=== PATIENT | male | born 1980 | race American Indian/Alaskan Native ===

== ENCOUNTER 2019-01-16 02:22 | Emergency (ER) | payer OTHER ==
--- NOTE | 2019-01-16 03:08 | XRay Report ---
FINAL REPORT PROCEDURE: XR CHEST ROUTINE 2V TECHNIQUE: PA and lateral chest radiographs were obtained. CPT 23283 HISTORY: CP s/p falling on a log COMPARISON: No prior studies are available for comparison. FINDINGS: Heart: Normal. Mediastinum/Vessels: Normal. Lungs/Pleural space: Normal. Bony thorax: No acute osseous abnormality. Other: IMPRESSION: Normal examination.
[2019-01-16] MEDS ORDERED: ULTRAM PO ONE (06:15)
--- NOTE | 2019-01-16 06:40 | Emergency Department Report ---
ED General Adult HPI - General Chief complaint: Fall Stated complaint: CHEST PAIN Time Seen by Provider: 01/16/19 06:22 Source: patient Mode of arrival: Ambulatory Limitations: No Limitations - History of Present Illness Initial comments: Patient presents to emergency department with a complaint of left-sided rib pain. Patient states he tripped and fell into a tree stump on Monday morning has had pain on the left side of his ribs and chest wall. Patient denies a shortness breath, headache, abdominal pain. Patient denies losing consciousness or hitting his head. -: Sudden Location: chest Severity scale (0 -10): 5 Quality: sharp Consistency: constant Improves with: rest Worsens with: movement Associated Symptoms: denies other symptoms Treatments Prior to Arrival: none - Related Data Previous Rx's Medication Instructions Recorded Last Taken Type ALBUTEROL Inhaler (OR & NICU) 2 puff IH Q4HR PRN #1 inhalation 01/16/19 Unknown Rx [ProAir HFA Inhaler] Ibuprofen [Motrin] 800 mg PO Q8HR PRN #30 tablet 01/16/19 Unknown Rx traMADol [Ultram] 50 mg PO Q6HR PRN #24 tablet 01/16/19 Unknown Rx Allergies Allergy/AdvReac Type Severity Reaction Status Date / Time No Known Allergies Allergy Verified 01/16/19 06:25 ED Review of Systems ROS: Stated complaint: CHEST PAIN Other details as noted in HPI Comment: All other systems reviewed and negative Constitutional: denies: chills, fever Eyes: denies: eye pain, eye discharge, vision change ENT: denies: ear pain, throat pain Respiratory: denies: cough, shortness of breath, wheezing Cardiovascular: denies: chest pain, palpitations Endocrine: no symptoms reported Gastrointestinal: denies: abdominal pain, nausea, diarrhea Genitourinary: denies: urgency, dysuria Musculoskeletal: denies: back pain, joint swelling, arthralgia Skin: denies: rash, lesions Neurological: denies: headache, weakness, paresthesias Psychiatric: denies: anxiety, depression Hematological/Lymphatic: denies: easy bleeding, easy bruising ED Past Medical Hx - Medications Home Medications: Home Medications Medication Instructions Recorded Confirmed Last Taken Type ALBUTEROL Inhaler (OR & NICU) 2 puff IH Q4HR PRN #1 inhalation 01/16/19 Unknown Rx [ProAir HFA Inhaler] Ibuprofen [Motrin] 800 mg PO Q8HR PRN #30 tablet 01/16/19 Unknown Rx traMADol [Ultram] 50 mg PO Q6HR PRN #24 tablet 01/16/19 Unknown Rx ED Physical Exam - General Limitations: No Limitations General appearance: alert, in no apparent distress - Head Head exam: Present: atraumatic, normocephalic - Eye Eye exam: Present: normal appearance - ENT ENT exam: Present: mucous membranes moist - Neck Neck exam: Present: normal inspection - Respiratory Respiratory exam: Present: normal lung sounds bilaterally, other (TTP of anterior aspects of ribs 4 and 5 left side). Absent: respiratory distress, wheezes, rales - Cardiovascular Cardiovascular Exam: Present: regular rate, normal rhythm. Absent: systolic murmur, diastolic murmur, rubs, gallop - GI/Abdominal GI/Abdominal exam: Present: soft, normal bowel sounds. Absent: distended, tenderness - Rectal Rectal exam: Present: deferred - Extremities Exam Extremities exam: Present: normal inspection - Back Exam Back exam: Present: normal inspection - Neurological Exam Neurological exam: Present: alert, oriented X3 - Psychiatric Psychiatric exam: Present: normal affect, normal mood - Skin Skin exam: Present: warm, dry, intact, normal color. Absent: rash ED Course Vital Signs 01/16/19 05:57 Pulse Rate 68 Respiratory 17 Rate Blood Pressure 130/93 [Right] O2 Sat by Pulse 99 Oximetry ED Medical Decision Making - Radiology Data Radiology results: report reviewed - Medical Decision Making Discussed plan of care with patient Critical care attestation.: If time is entered above; I have spent that time in minutes in the direct care of this critically ill patient, excluding procedure time. ED Disposition Clinical Impression: Rib pain on left side Disposition: DC-01 TO HOME OR SELFCARE Is pt being admited?: No Does the pt Need Aspirin: No Condition: Stable Instructions: Rib Fracture (ED) Additional Instructions: return if worse Referrals: [facility] [Provider Group] - 3-5 Days [facility] [Provider Group] - 3-5 Days Time of Disposition: 06:37
[2019-01-16 06:47] VITALS: BP 136/89
== END 2019-01-16 06:47 | disposition home or self-care (01) ==
LOC: ED 02:22
DX: R07.81 Pleurodynia (principal)
CPT/HCPCS: 71046; 93005; 93010

== ENCOUNTER 2020-01-13 12:37 | Emergency (ER) | payer OTHER ==
--- NOTE | 2020-01-13 13:51 | Event Note ---
ED Screening Note ED Screening Note: 39 yo male with right temporal parietal headache. right eye pulsating with blurry vision This initial assessment/diagnostic orders/clinical plan/treatment(s) is/are subject to change based on patients health status, clinical progression and re- assessment by fellow clinical providers in the ED. Further treatment and workup at subsequent clinical providers discretion. Patient/guardian urged not to elope from the ED as their condition may be serious if not clinically assessed and managed. Initial orders include:
[2020-01-13 13:57] VITALS: BP 119/73
== END 2020-01-13 14:56 | disposition left against medical advice (07) ==
LOC: ED 12:37
DX: R51 Headache (principal); Z53.21 Procedure and treatment not carried out due to patient leaving prior to being seen by health care provider

== ENCOUNTER 2020-08-11 14:13 | Emergency (ER) | payer SELFPAY ==
[2020-08-11 14:35] VITALS: BP 128/91
--- NOTE | 2020-08-11 17:22 | Emergency Department Report ---
ED Male HPI - General Chief complaint: Urogenital-Male Stated complaint: PAIN WHEN URINE Time Seen by Provider: 08/11/20 16:59 Source: patient Mode of arrival: Ambulatory Limitations: No Limitations - History of Present Illness Initial comments: 39-year-old male with no significant past medical history presents to the ER today complaining of penile discharge, dysuria and rectal bleeding. Patient states that he has been having extra alcohol or penile discharge for the past 2 days with associated dysuria. He denies any testicular pain, or abdominal pain. He denies any new sexual partners. Patient also complains of rectal bleeding for the past week. He states that he notices it mainly on the tissue when he wipes after having a bowel movement. He has noticed it once on the stool. He states that on the stool was dark red, and on the tissue it was bright red. He denies any associated rectal pain. He denies any abdominal pain. He denies any diarrhea or hard stools. He denies similar symptoms in the past. He denies ETOH abuse or NSAID abuse. He denies rectal intercourse. MD Complaint: penile discharge, dysuria, other (rectal bleeding) - Related Data Previous Rx's Medication Instructions Recorded Last Taken Type Albuterol Mdi (or & Nicu Only) 2 puff IH Q4HR PRN #1 inhalation 01/16/19 Unknown Rx [ProAir HFA Inhaler] Ibuprofen [Motrin] 800 mg PO Q8HR PRN #30 tablet 01/16/19 Unknown Rx traMADoL [Ultram] 50 mg PO Q6HR PRN #24 tablet 01/16/19 Unknown Rx Sulfamethoxazole/Trimethoprim 1 each PO BID #14 tablet 08/11/20 Unknown Rx [Bactrim DS TAB] Allergies Allergy/AdvReac Type Severity Reaction Status Date / Time No Known Allergies Allergy Verified 01/16/19 06:25 ED Review of Systems ROS: Stated complaint: PAIN WHEN URINE Other details as noted in HPI ED Past Medical Hx - Past Medical History Previous Medical History?: Yes Hx Headaches / Migraines: Yes - Surgical History Past Surgical History?: Yes Additional Surgical History: Right hand - Social History Smoking Status: Never Smoker Substance Use Type: None - Medications Home Medications: Home Medications Medication Instructions Recorded Confirmed Last Taken Type Albuterol Mdi (or & Nicu Only) 2 puff IH Q4HR PRN #1 inhalation 01/16/19 Unknown Rx [ProAir HFA Inhaler] Ibuprofen [Motrin] 800 mg PO Q8HR PRN #30 tablet 01/16/19 Unknown Rx traMADoL [Ultram] 50 mg PO Q6HR PRN #24 tablet 01/16/19 Unknown Rx Sulfamethoxazole/Trimethoprim 1 each PO BID #14 tablet 08/11/20 Unknown Rx [Bactrim DS TAB] ED Physical Exam - General Limitations: No Limitations General appearance: alert, in no apparent distress - Head Head exam: Present: atraumatic, normocephalic, normal inspection - Respiratory Respiratory exam: Present: normal lung sounds bilaterally. Absent: respiratory distress - Cardiovascular Cardiovascular Exam: Present: regular rate, normal rhythm. Absent: systolic murmur, diastolic murmur, rubs, gallop - GI/Abdominal GI/Abdominal exam: Present: soft, normal bowel sounds. Absent: distended, tenderness - Rectal Rectal exam: Present: normal inspection, normal rectal tone, other (no gross blood; very small amt of stool in vault). Absent: fecal impaction, hemorrhoids, mass, tenderness - Back Exam Back exam: Present: normal inspection - Neurological Exam Neurological exam: Present: alert, oriented X3 - Psychiatric Psychiatric exam: Present: normal affect, normal mood - Skin Skin exam: Present: intact ED Course Vital Signs 08/11/20 14:34 Temperature 98.4 F Pulse Rate 103 H Respiratory 18 Rate Blood Pressure 128/91 O2 Sat by Pulse 96 Oximetry ED Medical Decision Making - Lab Data Result diagrams: 08/11/20 17:28 08/11/20 17:28 - Medical Decision Making Pt presents to ED c/o dysuria, penile d/c and rectal bleeding. He has no other symptoms. Labs reviewed -- CBC show leukocytosis of 16 but H/H stable. Hemocult negative. CMP nl. UA concerning for UTI culture pending; GC also pending but pt will be tx prophylactically for gonorrhea/chlamydia. Pt has soft non tender abd. No rectal pain/swelling or ttp. Pt is well appearing, not toxic, no acute distress and well hydrated. Cause of leukocytosis unclear, could be related to UTI but pt history, exam and current conditions does not indicate need for further work up at this time. Discussed lab results, dx and tx plan with pt. He is stable at time of d/c. Critical care attestation.: If time is entered above; I have spent that time in minutes in the direct care of this critically ill patient, excluding procedure time. ED Disposition Clinical Impression: UTI (urinary tract infection), Concern about STD in male without diagnosis Disposition: DC- TO HOME OR SELFCARE Is pt being admited?: No Does the pt Need Aspirin: No Condition: Stable Instructions: Urinary Tract Infection in Men (ED), Sexually Transmitted Diseases (ED) Additional Instructions: I recommend that you take antibiotics as prescribed and complete it. I recommend close f/u with GI specialist if bleeding continues. Return to ED if worse. Prescriptions: Sulfamethoxazole/Trimethoprim [Bactrim DS TAB] 1 each PO BID #14 tablet Referrals: PRIMARY CARE, [Primary Care Provider] - 3-5 Days [facility] [Provider Group] - 3-5 Days Time of Disposition: 18:40
[2020-08-11 18:13] LABS: Basophils # (Auto) 0.1 K/mm3 (0.0-0.1); Basophils % (Auto) 0.5 % (0.0-1.8); Eosinophils # (Auto) 0.2 K/mm3 (0.0-0.4); Eosinophils % (Auto) 1.4 % (0.0-4.3); Hemoglobin 16.2 gm/dl (11.8-15.2); Lymphocytes # (Auto) 1.8 K/mm3 (1.2-5.4); Lymphocytes % (Auto) 11.3 % (13.4-35.0); Mean Corpuscular HGB Conc 35 % (32-34); Mean Corpuscular Volume 91 fl (84-94); Monocytes # (Auto) 1.4 K/mm3 (0.0-0.8); Monocytes % (Auto) 8.5 % (0.0-7.3); Platelet Count 280 K/mm3 (140-440); Red Blood Count 5.18 M/mm3 (3.65-5.03); Red Cell Distribution Width 14.1 % (13.2-15.2)
[2020-08-11 18:32] LABS: Alanine Aminotransferase 12 units/L (7-56); Albumin 4.8 g/dL (3.9-5); BUN/Creatinine Ratio 10; Blood Urea Nitrogen 10 mg/dL (9-20); Calcium 9.4 mg/dL (8.4-10.2); Hemolysis Index 3
[2020-08-11 18:34] LABS: Bilirubin,Urine NEG (Negative); Blood,Urine SM (Negative); Color,Urine Yellow (Yellow); Mucus,Urine 2+ /HPF; Urobilinogen,Urine < 2.0 mg/dL (<2.0)
[2020-08-11 18:36] LABS: WBC,Urine > 182.0 /HPF (0.0-6.0)
[2020-08-11] MEDS ORDERED: AZITHROMYCIN 250 MG TAB PO ONE (18:37)
[2020-08-11] MEDS ORDERED: LIDOCAINE-MPF (1%) 10 MG/1 ML VIAL 5 ML INFILTRATI ONE (18:37)
== END 2020-08-11 19:20 | disposition home or self-care (01) ==
LOC: ED 14:13
DX: N39.0 Urinary tract infection, site not specified (principal); Z11.3 Encounter for screening for infections with a predominantly sexual mode of transmission; G43.909 Migraine, unspecified, not intractable, without status migrainosus; Z79.899 Other long term (current) drug therapy
CPT/HCPCS: 36415; 80053; 81001; 82271; 85025; 87591; 96372; 99283; J0696

== ENCOUNTER 2020-08-28 01:15 | Emergency (ER) | payer OTHER ==
[2020-08-28 02:10] VITALS: BP 124/84
[2020-08-28] MEDS ORDERED: ACETAMINOPHEN 500 MG TAB PO ONE (02:45)
--- NOTE | 2020-08-28 04:37 | Cat Scan Report ---
CT head/brain wo con INDICATION: Headache. TECHNIQUE: Routine CT head without contrast. All CT scans at this location are performed using CT dos e reduction for ALARA by means of automated exposure control. COMPARISON: None. FINDINGS: BRAIN / INTRACRANIAL CONTENTS: No acute hemorrhage, mass effect, midline shift, or hydrocephalus. No appreciable acute large territorial or lacunar infarct. No chronic infarct or focal atrophy. Normal b rain volume and ventricular/sulcal size for age. ORBITS: No significant abnormality of visualized orbits. SINUSES / MASTOIDS: No significant abnormality of visualized sinuses and mastoid air cells. ADDITIONAL FINDINGS: None. IMPRESSION: 1. No acute intracranial abnormality. Signer Name: Honorio Gonzales MD Signed: 08/28/2020 4:32 AM Workstation Name: [email or web address]
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
== END 2020-08-28 05:00 | disposition home or self-care (01) ==
LOC: ED 01:15
DX: S09.90XA Unspecified injury of head, initial encounter (principal); G44.319 Acute post-traumatic headache, not intractable; F17.200 Nicotine dependence, unspecified, uncomplicated; Z98.890 Other specified postprocedural states; Z79.1 Long term (current) use of non-steroidal anti-inflammatories (NSAID); Z79.899 Other long term (current) drug therapy; Y04.8XXA Assault by other bodily force, initial encounter; Y93.89 Activity, other specified; Y92.89 Other specified places as the place of occurrence of the external cause; Y99.8 Other external cause status
CPT/HCPCS: 70450

== ENCOUNTER 2021-01-26 01:06 | Emergency (ER) | payer OTHER ==
[2021-01-26] MEDS ORDERED: KETOROLAC 30 MG/1 ML INJ IV ONE (01:12)
[2021-01-26] MEDS ORDERED: ONDANSETRON 4 MG/2 ML INJ IV ONE (01:12)
--- NOTE | 2021-01-26 01:18 | Emergency Department Report ---
ED Abdominal Pain HPI - General Chief Complaint: Abdominal Pain Stated Complaint: PAINFUL URINATION/FLANK PAIN Time Seen by Provider: 01/26/21 01:09 Source: patient Mode of arrival: Ambulatory Limitations: No Limitations - History of Present Illness Initial Comments: 40 yr old male with pmhx of chronic QUACH and tobacco use presents to ED c/o urinary urgency, hesistancy and decrease urinary ouput. He states his symptoms started about 3 days ago. He reports associated left flank pain, which radiates into left groin. He states he did notice some blood in underwear yesterday but he has not urinated any blood. He reports nausea but no vomiting. He denies any fever, chills, penile d/c, testicular pain or swelling. He denies hx of prostate issues or kidney stones. MD Complaint: flank pain, other (urinary urgency, hesistancy ) -: Gradual - Related Data Previous Rx's Medication Instructions Recorded Last Taken Type Albuterol Mdi (or & Nicu Only) 2 puff IH Q4HR PRN #1 inhalation 01/16/19 Unknown Rx [ProAir HFA Inhaler] traMADoL [Ultram] 50 mg PO Q6HR PRN #24 tablet 01/16/19 Unknown Rx Butalb/Acetamin/Caff 50-325-40 1 - 2 tab PO Q6HR PRN #12 tab 08/28/20 Unknown Rx [Fioricet 50-325-40] Ibuprofen [Motrin] 600 mg PO Q8H PRN #20 tablet 08/28/20 Unknown Rx Ibuprofen [Motrin 800 MG tab] 800 mg PO Q8HR PRN #30 tablet 01/26/21 Unknown Rx Ondansetron [Zofran Odt] 4 mg PO Q8HR #12 tab.rapdis 01/26/21 Unknown Rx Sulfamethoxazole/Trimethoprim 1 each PO BID #14 tablet 01/26/21 Unknown Rx [Bactrim DS TAB] Allergies Allergy/AdvReac Type Severity Reaction Status Date / Time No Known Allergies Allergy Verified 01/16/19 06:25 ED Review of Systems ROS: Stated complaint: PAINFUL URINATION/FLANK PAIN Other details as noted in HPI Comment: All other systems reviewed and negative Constitutional: denies: chills, fever Eyes: denies: eye pain, eye discharge, vision change Respiratory: denies: cough, shortness of breath, wheezing Cardiovascular: denies: chest pain, palpitations Endocrine: no symptoms reported Gastrointestinal: abdominal pain, nausea. denies: vomiting, diarrhea, constipation, hematemesis, hematochezia, other Genitourinary: urgency, hematuria, other (hesistancy ). denies: dysuria, frequency, testicular pain, testicular mass Skin: denies: rash, lesions Neurological: denies: headache, weakness, paresthesias Psychiatric: denies: anxiety, depression Hematological/Lymphatic: denies: easy bleeding, easy bruising ED Past Medical Hx - Past Medical History Previous Medical History?: Yes Hx Headaches / Migraines: Yes - Surgical History Past Surgical History?: Yes Additional Surgical History: Right hand - Social History Smoking Status: Current Every Day Smoker Substance Use Type: None - Medications Home Medications: Home Medications Medication Instructions Recorded Confirmed Last Taken Type Albuterol Mdi (or & Nicu Only) 2 puff IH Q4HR PRN #1 inhalation 01/16/19 Unknown Rx [ProAir HFA Inhaler] traMADoL [Ultram] 50 mg PO Q6HR PRN #24 tablet 01/16/19 Unknown Rx Butalb/Acetamin/Caff 50-325-40 1 - 2 tab PO Q6HR PRN #12 tab 08/28/20 Unknown Rx [Fioricet 50-325-40] Ibuprofen [Motrin] 600 mg PO Q8H PRN #20 tablet 08/28/20 Unknown Rx Ibuprofen [Motrin 800 MG tab] 800 mg PO Q8HR PRN #30 tablet 01/26/21 Unknown Rx Ondansetron [Zofran Odt] 4 mg PO Q8HR #12 tab.rapdis 01/26/21 Unknown Rx Sulfamethoxazole/Trimethoprim 1 each PO BID #14 tablet 01/26/21 Unknown Rx [Bactrim DS TAB] ED Physical Exam - General Limitations: No Limitations General appearance: alert, in no apparent distress - Head Head exam: Present: atraumatic, normocephalic, normal inspection - Eye Eye exam: Present: normal appearance, PERRL, EOMI Pupils: Present: normal accommodation - ENT ENT exam: Present: normal exam, mucous membranes moist - Respiratory Respiratory exam: Present: normal lung sounds bilaterally. Absent: respiratory distress - Cardiovascular Cardiovascular Exam: Present: regular rate, normal rhythm, normal heart sounds - GI/Abdominal GI/Abdominal exam: Present: soft. Absent: distended, tenderness, guarding, rebound - Back Exam Back exam: Present: normal inspection, CVA tenderness (L) - Neurological Exam Neurological exam: Present: alert, oriented X3, CN II-XII intact, normal gait - Psychiatric Psychiatric exam: Present: normal affect, normal mood - Skin Skin exam: Present: intact ED Course Vital Signs 01/26/21 01/26/21 01/26/21 01:14 02:16 02:46 Temperature 98.5 F Pulse Rate 92 H Respiratory 16 16 16 Rate Blood Pressure 137/85 Blood Pressure [Right] O2 Sat by Pulse 97 Oximetry 01/26/21 03:21 Temperature 98.2 F Pulse Rate 72 Respiratory 16 Rate Blood Pressure Blood Pressure 128/72 [Right] O2 Sat by Pulse 100 Oximetry ED Medical Decision Making - Lab Data Result diagrams: 01/26/21 01:20 01/26/21 01:20 - Radiology Data Radiology results: report reviewed - Medical Decision Making 40 yr old male with pmhx of chronic QUACH and tobacco use presents to ED c/o urin sujit urgency, hesistancy and decrease urinary ouput. He states his symptoms started about 3 days ago. He reports associated left flank pain, which radiates into left groin. He states he did notice some blood in underwear yesterday but he has not urinated any blood. He reports nausea but no vomiting. He denies any fever, chills, penile d/c, testicular pain or swelling. He denies hx of prostate issues or kidney stones. 0316: Patient resting comfortably. He states that his pain is much better after meds and fluids. Labs reviewed, CBC shows leukocytosis, CMP unremarkable, UA positive for UTI, urine culture pending and his CT report shows diffuse thickening of the urinary bladder wall which may indicate cystitis but no pyelonephritis or stone seen on the CT. His vital signs have remained stable throughout the stay including the fact that he has been afebrile. He is not toxic appearing nor is he ill-appearing. He is not in any acute distress. He is neurologically intact. Very low concern for sepsis at this time. No indication for any further work-up, admission or emergent consult at this time. Discussed lab results, CT results, diagnosis and treatment plan with patient. Patient expressed understanding of instructions and agree with plan. Patient was stable at time of discharge. Critical care attestation.: If time is entered above; I have spent that time in minutes in the direct care of this critically ill patient, excluding procedure time. ED Disposition Clinical Impression: Cystitis, UTI (urinary tract infection) Disposition: TO HOME OR SELFCARE Is pt being admited?: No Does the pt Need Aspirin: No Condition: Stable Instructions: Urinary Tract Infection, Adult Additional Instructions: Take the antibiotic as prescribed. It is important that you drink lots of water. Follow-up with the primary care doctor listed on your discharge instru ctions. Return to the ER if your symptoms changes or worsens in any way. Prescriptions: Sulfamethoxazole/Trimethoprim [Bactrim DS TAB] 1 each PO BID #14 tablet Ibuprofen [Motrin 800 MG tab] 800 mg PO Q8HR PRN #30 tablet PRN Reason: Pain Ondansetron [Zofran Odt] 4 mg PO Q8HR #12 tab.rapdis Referrals: PRIMARY MD MARLY [Primary Care Provider] - 3-5 Days AJAY INFANTE MD [Staff Physician] - 3-5 Days Forms: Work/School Release Form(ED) Time of Disposition: 03:01
[2021-01-26 01:37] LABS: Basophils % (Auto) 0.2 % (0.0-1.8); Eosinophils # (Auto) 0.5 K/mm3 (0.0-0.4); Hematocrit 45.1 % (35.5-45.6); Hemoglobin 15.5 gm/dl (11.8-15.2); Lymphocytes # (Auto) 1.5 K/mm3 (1.2-5.4); Lymphocytes % (Auto) 8.9 % (13.4-35.0); Mean Corpuscular HGB Conc 34 % (32-34); Mean Corpuscular Volume 90 fl (84-94); Monocytes % (Auto) 11.8 % (0.0-7.3); Platelet Count 261 K/mm3 (140-440); Red Cell Distribution Width 14.3 % (13.2-15.2)
[2021-01-26 01:40] LABS: Bilirubin,Urine NEG (Negative); Blood,Urine SM (Negative); Color,Urine Yellow (Yellow); Mucus,Urine FEW /HPF; Urobilinogen,Urine < 2.0 mg/dL (<2.0)
[2021-01-26 01:41] LABS: WBC,Urine > 182.0 /HPF (0.0-6.0)
--- NOTE | 2021-01-26 01:54 | Cat Scan Report ---
CT ABDOMEN AND PELVIS WITHOUT CONTRAST HISTORY: Left-sided flank pain COMPARISON: None TECHNIQUE: Routine abdominal and pelvic CT exam performed without contrast. Lack of intravenous cont rast limits evaluation of the vascular and solid organs.. All CT scans at this location are performed using CT dose reduction for ALARA by means of automated exposure control. FINDINGS: CT ABDOMEN: Lung Bases: No significant abnormality. Liver: No significant abnormality. Biliary: No significant abnormality. Spleen: No significant abnormality. Unenlarged. Pancreas: No significant abnormality. Adrenals: No significant abnormality. Kidneys: No significant abnormality. Lymphatics: No lymphadenopathy. Vasculature: No significant abnormality. Bowel/Peritoneum: No significant abnormality. No free air. No free fluid. Appendix not visualized. No pericecal inflammation. CT PELVIC: : There is diffuse thickening of the urinary bladder wall. There are no bladder stones. Lymphatics: No lymphadenopathy. Osseous Structures: No aggressive appearing osseous lesions. Additional Findings: None IMPRESSION: 1. Diffuse thickening of the urinary bladder wall which may indicate cystitis. Signer Name: Honorio Gonzales MD Signed: 01/26/2021 1:50 AM Workstation Name: [id number]
[2021-01-26 01:58] LABS: Alanine Aminotransferase 9 units/L (7-56); Albumin 4.5 g/dL (3.9-5); BUN/Creatinine Ratio 8; Blood Urea Nitrogen 10 mg/dL (9-20); Calcium 9.2 mg/dL (8.4-10.2); Hemolysis Index 4
[2021-01-26] MEDS ORDERED: SODIUM CHLORIDE 0.9% 1000 ML 1,000 ML IV ONE (02:01)
[2021-01-26] MEDS ORDERED: cefTRIAXone/NS 1 GM/50 ML 1 GM/50 ML BAG IV ONE (02:01)
[2021-01-26 03:22] VITALS: BP 128/72
== END 2021-01-26 03:21 | disposition home or self-care (01) ==
LOC: ED 01:06
DX: N39.0 Urinary tract infection, site not specified (principal); F17.200 Nicotine dependence, unspecified, uncomplicated; G43.909 Migraine, unspecified, not intractable, without status migrainosus; Z79.899 Other long term (current) drug therapy; Z98.890 Other specified postprocedural states
CPT/HCPCS: 36415; 74176; 80053; 81001; 83690; 83735; 85025; 96365; 96375; 99284; J0696; J1885; J2405; J7030